=== PATIENT | female | born 1955 | race Caucasian/White ===

== ENCOUNTER 2017-01-06 17:20 | Emergency (ER) | payer OTHER ==
[2017-01-06 18:02] VITALS: BP 138/88; PULSE 85; RESP 18; TEMP 98.2; O2SAT 93
[2017-01-06] MEDS ORDERED: IPRATROPIUM/ALBUTEROL 3 ML DEYVIAL IH ONE (19:38)
--- NOTE | 2017-01-06 19:40 | UCPHY ---
H & P Time Seen by Provider: 01/06/17 18:56 Patient Type: Established HPI/ROS: 61-year-old female here for cough fevers chills Review of systems As per HPI General positive fever positive chills no weakness HEENT no eye pain no eye discharge. No eye redness, no sore throat Respiratory positive cough, no shortness of breath Cardiac no chest pain, no peripheral edema GI no abdominal pain, no diarrhea, no constipation, no nausea, no vomiting no flank pain, no hematuria, no dysuria Musculoskeletal no myalgias, no joint pain Heme no easy bruising, no easy bleeding Endo no polyuria, no polydipsia Skin no rashes, no pruritus Neuro no syncope, no dizziness, no headaches Psych is no suicidal ideation, no homicidal ideation Past Medical/Surgical History: Noncontributory Social History: Denies alcohol or drug use Smoking Status: Former smoker Physical Exam: 61-year-old female alert and oriented with coarse cough, afebrile HEENT atraumatic normocephalic, extraocular muscles intact, anicteric Oropharynx negative for erythema negative exudate, tolerating her own secretions Neck supple no meningismus Lungs clear to auscultation bilaterally Heart regular rate and rhythm without murmur rub or gallop Abdomen nondistended normoactive bowel sounds soft nontender Back no CVA tenderness, no step-offs, no spinal tenderness Extremities no cyanosis clubbing or edema Neuro alert and oriented, no focal deficits Constitutional: Initial Vital Signs Temperature (C) 36.8 C 01/06/17 18:00 Heart Rate 85 01/06/17 18:00 Respiratory Rate 18 01/06/17 18:00 Blood Pressure 138/88 H 01/06/17 18:00 O2 Sat (%) 93 01/06/17 18:00 O2 Delivery Mode Room Air Allergies/Adverse Reactions: Penicillins Allergy (Severe, Verified 01/06/17 17:59) THROAT HIVES celecoxib Allergy (Verified 01/06/17 17:59) Other-Enter Comments NSAIDS (Non-Steroidal Anti-Inflamma Allergy (Verified 01/06/17 17:59) Home Medications: Medication Instructions Recorded AZITHROMYCIN [Z-PACK] 250 mg PO DAILY #6 tab 01/06/17 Albuterol [Proventil Neb] 01/06/17 Fluticasone/Vilanterol [Breo 01/06/17 Ellipta 200-25 Mcg INH] Guaifenesin/Codeine Phosphate 15 ml PO Q6 PRN #240 ml 01/06/17 [Codeine-Guaifen 10-100 mg/5 ml] methylPREDNISolone [Medrol Dose 1 each PO AD #1 ea 01/06/17 Kurtis] Medical Decision Making - Diagnostics Imaging: Chest x-ray no dense consolidation Right lower lobe atelectasis ED Course/Re-evaluation: Patient seen and evaluated for cough fevers chills Chest x-ray negative for dense consolidation Impression Bronchitis with mild bronchospasm Plan Antibiotics, steroid taper, inhaler - Data Points Medications Given: Discontinued Medications Albuterol/Ipratropium (Duoneb) 3 ml IH EDNOW ONE Stop: 01/06/17 19:39 Last Admin: 01/06/17 19:58 Dose: 3 ml Azithromycin (Zithromax) 500 mg PO EDNOW ONE PRN Reason: Protocol Stop: 01/06/17 20:59 Last Admin: 01/06/17 21:05 Dose: 500 mg Prednisone (Prednisone) 60 mg PO EDNOW ONE Stop: 01/06/17 20:58 Last Admin: 01/06/17 21:05 Dose: 60 mg Departure - Departure Disposition: Home, Routine, Self-Care Clinical Impression: Bronchitis Condition: Good Instructions: Acute Bronchitis (ED) Referrals: Jane Child MD [Primary Care Provider] - As per Instructions Stand Alone Forms: Statement of Treatment, Work Excuse Prescriptions: Guaifenesin/Codeine Phosphate [Codeine-Guaifen 10-100 mg/5 ml] 15 ml PO Q6 PRN # 240 ml PRN Reason: Cough, Severe methylPREDNISolone [Medrol Dose Kurtis] 1 each PO AD #1 ea AZITHROMYCIN [Z-PACK] 250 mg PO DAILY #6 tab - PQRS PQRS Measurement: na
[2017-01-06] MEDS ORDERED: predniSONE 20 MG TAB PO ONE (20:57)
[2017-01-06] MEDS ORDERED: AZITHROMYCIN 250 MG TAB PO ONE (20:58)
--- NOTE | 2017-01-06 21:08 | DX ---
PA and Lateral Chest January 06, 2017 Indication: Chest congestion, bodyache, shortness of breath, and cough. Comparison: December 18, 2015. Findings: There is mild increase in a very focal patchy right lower lobe density that is at the eloisa phery of the right costophrenic angle. This is likely just mild increasing atelectasis. I doubt thi s is a developing pneumonia. The rest of the lungs are clear. The heart and mediastinum are normal. Bones and soft tissues are unchanged. Impression: No focal findings that would explain the patient's conglomerate of presenting symptoms. Mild increased density in the right lower lobe that is very nonspecific, probably representing sligh t increasing atelectasis.
== END 2017-01-06 21:14 | disposition home or self-care (01) ==
LOC: CED 17:20
DX: J40 Bronchitis, not specified as acute or chronic (principal); Z88.0 Allergy status to penicillin; Z87.891 Personal history of nicotine dependence
CPT/HCPCS: 71020-PO; 87400-PO

== ENCOUNTER → 2017-01-24 | Outpatient (CLI) | payer OTHER | LOC: CIMAGING 14:41 | DX: Z12.31 Encounter for screening mammogram for malignant neoplasm of breast (principal) | CPT/HCPCS: G0202 ==